=== PATIENT | male | born 1970 | race Caucasian/White ===

== ENCOUNTER 2017-11-11 20:41 | Emergency (ER) | payer OTHER, SELFPAY ==
[2017-11-11 20:48] VITALS: BP 136/78; PULSE 93; RESP 16; TEMP 37.5; O2SAT 100; BMI 37.4
--- NOTE | 2017-11-11 20:57 | XR_ITS ---
XR chest 2V HISTORY: ITS.REASON: back pain/ cough ORDERING PHYSICIAN: Asa Segundo MD PATIENT AGE: 47 years COMPARISON: None available FINDINGS: The cardiomediastinal silhouette and pulmonary vascularity are within normal limits. There are slight increased markings in the right upper lobe. This may be related to technique. There is some mild coarsening of the bronchovascular markings. Cannot exclude developing patchy infiltrate. The remaining lungs are clear. No acute bony anomalies. IMPRESSION: Possible developing right upper lobe infiltrate
--- NOTE | 2017-11-11 22:24 | [facility]H.EDGENADL ---
ED Disposition Clinical Impression: Strain of thoracic region Qualifiers: Encounter type: initial encounter Qualified Code(s): S29.019A - Strain of muscle and tendon of unspecified wall of thorax, initial encounter Disposition: Home, Self-Care Condition on Discharge: Good Instructions: DI for Thoracic Back Pain Additional Instructions: use meds and see pcp for follow up Prescriptions: predniSONE [Prednisone 20mg Tab] 20 mg PO DAILY #10 tab Referrals: Asa Segundo MD [Primary Care Provider] - - Critical Care Critical Care Time: No Attestation: On 11/11/17, the high probability of a clinically significant, sudden or life threatening deterioration of the following system(s) required my full and direct attention, intervention and personal management. The time I documented below is in addition to time spent performing reported procedures but includes the following listed in this critical care notation. Medical Decision Making - Medical Records Medical records reviewed: Yes: I reviewed the patient's medical records. Vital Signs: 11/11/17 20:48 Temperature 99.5 F Temperature Source Oral Pulse Rate [Right Radial] 93 H Respiratory Rate 16 Blood Pressure [Right Arm] 136/78 Blood Pressure Mean [Right Arm] 97 Blood Pressure Source [Right Arm] Automatic Cuff Blood Pressure Position [Right Arm] Sitting 02 Sat by Pulse Oximetry 100 Oxygen Delivery Method Room Air - Lab Data Lab results reviewed: Yes: I reviewed the patient's lab results. Lab Results 11/11/17 21:00: Influenza Type A Ag Negative, Influenza Type B Ag Negative Orders (Tests/Meds): ORDERS Category Date Time Status XR chest 2V Stat Exams 11/11/17 20:57 Taken - Raji Inquiry Pt receiving controlled substance: No General Adult HPI - General Chief complaint: PAIN Stated complaint: back pain Time Seen by Provider: 11/11/17 22:24 Mode of Arrival: Ambulatory Source of Information: Patient, Medical Record Limitations: No Limitations Description of Symptoms (Recalled from ER Triage Doc. by RN): [pt reports 3 weeks of back pain, after viral illness with alot of coughing, pain with deep breath, use of motrin limited by ulcer - History of Present Illness HPI narrative: pt with rt si9ded post t spine pain with no rash - has been doing heavy work Onset (ago): day(s) Location: back Radiation: non-radiation Severity: moderate Quality: sharp Consistency: intermittent Exacerbating factors: movement Associated symptoms: negative: cough, fever/chills, rash Treatments prior to arrival: NSAID - Related Data Home Medications Medication Instructions Recorded Confirmed citalopram 40 mg tablet 40 mg PO QDAY 09/30/17 hydrochlorothiazide 25 mg tablet 25 mg PO QDAY 09/30/17 lisinopril 10 mg tablet 10 mg PO QDAY 09/30/17 metoprolol tartrate 50 mg tablet 50 mg PO BID 09/30/17 pantoprazole 40 mg tablet,delayed 40 mg PO QDAY 09/30/17 release Previous Rx's Medication Instructions Recorded predniSONE [Prednisone 20mg 20 mg PO DAILY #10 tab 11/11/17 Tab] Allergies Allergy/AdvReac Type Severity Reaction Status Date / Time ketorolac [KETOROLAC] Allergy Unknown ITCHING Verified 09/30/17 09:03 HOTDOGS Allergy Unknown SWELLING Uncoded 08/30/17 15:13 OF LEGS [facility] History I have reviewed the patient's past medical history: Yes Medical History: Denies:: Cancer, Diabetes Mellitus Type 1, Diabetes Mellitus Type 2, MRSA Laterality Cases: Left: Carpal Tunnel Release Amputation: No Fractures: No - Social History Smoking Status: Current every day smoker # Packs/Day (cigarettes): 1 Alcohol Intake: never - Psychiatric History Expresses thoughts of harming self/others: None Suicide Plan Description: No Plan ROS Obtained: Yes All systems reviewed & no additional complaints - Constitutional Constitutional: Denies fever(s) - Eyes Eyes: Denies change in vision - ENT Ears, Nose, Mouth, and Thro
--- NOTE | 2017-11-11 22:27 | ED_ITS ---
ED Disposition Clinical Impression: Strain of thoracic region Qualifiers: Encounter type: initial encounter Qualified Code(s): S29.019A - Strain of muscle and tendon of unspecified wall of thorax, initial encounter Disposition: Home, Self-Care Condition on Discharge: Good Instructions: DI for Thoracic Back Pain Additional Instructions: use meds and see pcp for follow up Prescriptions: predniSONE [Prednisone 20mg Tab] 20 mg PO DAILY #10 tab Referrals: Asa Segundo MD [Primary Care Provider] - - Critical Care Critical Care Time: No Attestation: On 11/11/17, the high probability of a clinically significant, sudden or life threatening deterioration of the following system(s) required my full and direct attention, intervention and personal management. The time I documented below is in addition to time spent performing reported procedures but includes the following listed in this critical care notation. Medical Decision Making - Medical Records Medical records reviewed: Yes: I reviewed the patient's medical records. Vital Signs: 11/11/17 20:48 Temperature 99.5 F Temperature Source Oral Pulse Rate [Right Radial] 93 H Respiratory Rate 16 Blood Pressure [Right Arm] 136/78 Blood Pressure Mean [Right Arm] 97 Blood Pressure Source [Right Arm] Automatic Cuff Blood Pressure Position [Right Arm] Sitting 02 Sat by Pulse Oximetry 100 Oxygen Delivery Method Room Air - Lab Data Lab results reviewed: Yes: I reviewed the patient's lab results. Lab Results 11/11/17 21:00: Influenza Type A Ag Negative, Influenza Type B Ag Negative Orders (Tests/Meds): ORDERS Category Date Time Status XR chest 2V Stat Exams 11/11/17 20:57 Taken - Raji Inquiry Pt receiving controlled substance: No General Adult HPI - General Chief complaint: PAIN Stated complaint: back pain Time Seen by Provider: 11/11/17 22:24 Mode of Arrival: Ambulatory Source of Information: Patient, Medical Record Limitations: No Limitations Description of Symptoms (Recalled from ER Triage Doc. by RN): [pt reports 3 weeks of back pain, after viral illness with alot of coughing, pain with deep breath, use of motrin limited by ulcer - History of Present Illness HPI narrative: pt with rt si9ded post t spine pain with no rash - has been doing heavy work Onset (ago): day(s) Location: back Radiation: non-radiation Severity: moderate Quality: sharp Consistency: intermittent Exacerbating factors: movement Associated symptoms: negative: cough, fever/chills, rash Treatments prior to arrival: NSAID - Related Data Home Medications Medication Instructions Recorded Confirmed citalopram 40 mg tablet 40 mg PO QDAY 09/30/17 hydrochlorothiazide 25 mg tablet 25 mg PO QDAY 09/30/17 lisinopril 10 mg tablet 10 mg PO QDAY 09/30/17 metoprolol tartrate 50 mg tablet 50 mg PO BID 09/30/17 pantoprazole 40 mg tablet,delayed 40 mg PO QDAY 09/30/17 release Previous Rx's Medication Instructions Recorded predniSONE [Prednisone 20mg 20 mg PO DAILY #10 tab 11/11/17 Tab] Allergies Allergy/AdvReac Type Severity Reaction Status Date / Time ketorolac [KETOROLAC] Allergy Unknown ITCHING Verified 09/30/17 09:03 HOTDOGS Allergy Unknown SWELLING
[2017-11-11 22:43] VITALS: BP 148/82; PULSE 86; RESP 16; TEMP 37.4; O2SAT 98
== END 2017-11-11 22:48 | disposition home or self-care (01) ==
PROVIDERS: Emergency Provider Emergency Medicine; Family Provider Emergency Medicine; PCP Emergency Medicine
DX: S29.019A Strain of muscle and tendon of unspecified wall of thorax, initial encounter (principal); Z88.6 Allergy status to analgesic agent
CPT/HCPCS: 71046; 87275; 87276; 99282

== ENCOUNTER → 2018-06-14 14:53 | Outpatient (REF) | payer OTHER, SELFPAY ==
[2018-06-14 18:20] LABS: Hematocrit 43.9 % (42.0-52.0); Hemoglobin 14.3 g/dL (14.1-18.0); Lymphocytes # 0.7 K/mm3 (0.7-4.5); Lymphocytes % 4.9 K/mm3 (10-50); Mean Corpuscular HGB Conc 32.7 g/dL (31.8-35.4); Mean Corpuscular Hemoglobin 30.3 pg (27.0-31.2); Mean Corpuscular Volume 92.7 fl (80-94); Mean Platelet Volume 7.2 fl (7.4-10.4); Monocytes # 0.4 K/mm3 (0.1-1.0); Monocytes % 2.6 % (1.7-9.3); Neutrophils # 13.5 K/mm3 (1.8-7.8); Neutrophils % 92.4 % (37.0-80.0); Platelet Count 290 K/mm3 (142-424); Red Blood Count 4.73 M/mm3 (4.60-6.20); White Blood Count 14.7 K/mm3 (4.8-10.8)
[2018-06-14 18:21] LABS: MANUAL DIFFERENTIAL MANUAL DIFFERENTIAL (MANUAL DIFF)
[2018-06-14 18:25] LABS: Alanine Aminotransferase 60 U/L (12-78); Albumin Level 4.1 gm/dL (3.4-5.0); Albumin/Globulin Ratio 1.1 (1.1-1.8); Alkaline Phosphatase 96 U/L (46-116); Anion Gap 13.1 mEq/L (5-15); Aspartate Amino Transferase 49 U/L (15-37); Bilirubin,Total 0.6 mg/dL (0.2-1.0); Blood Urea Nitrogen 12 mg/dL (7-18); Calcium 9.2 mg/dL (8.5-10.1); Carbon Dioxide 28 mmol/L (21.0-32.0); Chloride 100 mmol/L (98-107); Creatinine,Serum 1.21 mg/dL (0.70-1.30); Estimated Glomerular Filt Rate 64 ml/min (>60); GFR (African American) 77 ML/MIN (>60); Globulin 3.7 gm/dl (1.3-3.2); Glucose 110 mg/dL (74-106); Potassium 4.1 mmoL/L (3.5-5.1); Sodium 137 mmol/L (136-145); Total Protein,Serum 7.8 gm/dL (6.4-8.2)
[2018-06-14 19:43] LABS: Erythrocyte Sedimentation Rate 29 mm/hr (0-15)
[2018-06-14 21:20] LABS: Lymphocytes % 7 % (10-50); Neutrophils % 93 % (42-76); Total Cells Counted 100
[2018-06-14 21:30] LABS: Anisocytosis 1+; Platelet Estimate Normal
== END ==
LOC: LAB 14:53
PROVIDERS: Visit Provider Emergency Medicine
DX: L30.9 Dermatitis, unspecified (principal)
CPT/HCPCS: 80053; 85007; 85025; 85651

== ENCOUNTER 2020-07-06 14:24 | Emergency (ER) | payer MEDICAID, SELFPAY ==
[2020-07-06 14:28] VITALS: BP 171/104; PULSE 89; RESP 18; TEMP 36.9; O2SAT 99; BMI 38.6
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
--- NOTE | 2020-07-06 14:36 | PC.NURSE ---
rad notified of CT order
--- NOTE | 2020-07-06 14:43 | PC.NURSE ---
pt to radiology
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
[2020-07-06 15:32] VITALS: BP 153/84; PULSE 78; RESP 18; TEMP 36.9; O2SAT 99
== END 2020-07-06 15:33 | disposition home or self-care (01) ==
PROVIDERS: Emergency Provider Emergency Medicine
DX: S06.0X0A Concussion without loss of consciousness, initial encounter (principal); Y04.0XXA Assault by unarmed brawl or fight, initial encounter; Y92.9 Unspecified place or not applicable; I10 Essential (primary) hypertension; F41.8 Other specified anxiety disorders
CPT/HCPCS: 70486; 99282